=== PATIENT | female | born 1950 | race Caucasian/White ===

== ENCOUNTER 2025-10-06 08:59 | Outpatient (CLI) | payer MEDICARE, BC | END 2025-10-06 09:00 | disposition home or self-care (01) | LOC: LABBT 08:59 | PROVIDERS: ATTEND Student in an Organized Health Care Education/Training Program | DX: Z01.818 Encounter for other preprocedural examination (principal); C34.11 Malignant neoplasm of upper lobe, right bronchus or lung; R91.1 Solitary pulmonary nodule; J98.4 Other disorders of lung | CPT/HCPCS: 71046; 93005; 93010 ==

== ENCOUNTER 2025-10-27 13:10 | Outpatient (CLI) | payer MEDICARE, BC | END 2025-10-27 13:11 | disposition home or self-care (01) | LOC: RAD 13:10 | PROVIDERS: ATTEND Student in an Organized Health Care Education/Training Program | DX: C34.11 Malignant neoplasm of upper lobe, right bronchus or lung (principal) | CPT/HCPCS: 71046 ==